=== PATIENT | male | born 1965 | race Caucasian/White ===

== ENCOUNTER 2018-05-13 08:37 | Emergency (ER) | payer BC ==
[2018-05-13 09:39] VITALS: BP 112/70
--- NOTE | 2018-05-13 09:51 | UC ---
Throat Pain/Nasal Armando HPI - HPI Summary HPI Summary: 10 days of sinusitis symptoms. He tried to give it time to resolve on its own using otc meds as well. He is concerned b/c he is going scuba diving soon and wants to be healthy for this. - History of Current Complaint Chief Complaint: UCRespiratory Stated Complaint: SINUS COMPLAINT Time Seen by Provider: 05/13/18 09:35 Hx Obtained From: Patient Onset/Duration: Sudden Onset Pain Intensity: 5 Pain Scale Used: 0-10 Numeric Cough: None - Allergies/Home Medications Allergies/Adverse Reactions: Allergies Allergy/AdvReac Type Severity Reaction Status Date / Time No Known Allergies Allergy Verified 05/13/18 09:35 Home Medications: Home Medications D-Methorphan/PE/Acetaminophen [Theraflu Severe Cold Mult 20-10-500 mg] 1 renard PO Q4H PRN 05/13/18 [History Confirmed 05/13/18] Guaifenesin/Pseudoephedrne HCl [Mucinex D ER 600-60 mg Tablet] 1 each PO Q12H PRN 05/13/18 [History Confirmed 05/13/18] PMH/Surg Hx/FS Hx/Imm Hx Previously Healthy: Yes - Surgical History Surgical History: Yes Surgery Procedure, Year, and Place: Right Bunionectomy, 2017, [place] - Social History 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 Negative: Sore Throat, Ear Ache, Nasal Discharge Respiratory: Positive: Negative Cardiovascular: Positive: Negative Physical Exam Triage Information Reviewed: Yes Appearance: Well-Appearing Vital Signs: Initial Vital Signs Temp 98.3 F 05/13/18 09:33 Pulse 66 05/13/18 09:33 Resp 16 05/13/18 09:33 BP 112/70 05/13/18 09:33 Pulse Ox 100 05/13/18 09:33 Vital Signs Reviewed: Yes ENT: Positive: Normal ENT inspection, Pharynx normal, TMs normal, Uvula midline. Negative: Sinus tenderness Dental: Negative: Percussion Tenderness @ Neck: Positive: Supple, Nontender, No Lymphadenopathy. Negative: Nuchal Rigidity Respiratory Exam: Normal Cardiovascular Exam: Normal Neurological: Positive: Alert Skin: Negative: Rashes Throat Pain/Nasal Course/Dx - Course Course Of Treatment: Subacute sinusitis which still may be viral but we are covering for bacterial source. Vitals are good. Afebrile and exam unremarkable. - Differential Dx/Diagnosis Differential Diagnosis/HQI/PQRI: Pharyngitis, Sinusitis, URI Provider Diagnosis: Sinusitis Discharge - Sign-Out/Discharge Documenting (check all that apply): Patient Departure All imaging exams completed and their final reports reviewed: No Studies - Discharge Plan Condition: Good Disposition: HOME Prescriptions: Amoxicillin/Clavulanate TAB* [Augmentin TAB 500 mg*] 500 mg PO BID 10 Days #20 tab Patient Education Materials: Sinusitis (ED) Referrals: Hanny SCHAEFER,Cayetano Mccloud [Primary Care Provider] - Additional Instructions: please follow up with your pcp if not improving. - Billing Disposition and Condition Condition: GOOD Disposition: Home
== END 2018-05-13 09:58 | disposition home or self-care (01) ==
LOC: UCCORT 08:37
DX: J32.9 Chronic sinusitis, unspecified (principal)
CPT/HCPCS: 99202; G0463